=== PATIENT | male | born 1945 | race Caucasian/White ===

== ENCOUNTER → 2024-04-10 | Outpatient (CLI) | payer OTHER ==
[~2024-04-10] MED LIST: CYAN250010 PO; EMPA10TA PO; LOSA1TAB37 PO; METF-444 PO; ZINC11TA PO; co Q 10 PO; vit c PO
== END | disposition home or self-care (01) ==
LOC: RAH 08:38
PROVIDERS: ATTEND Surgery
DX: C18.7 Malignant neoplasm of sigmoid colon (principal)
CPT/HCPCS: 74270; Q9958